=== PATIENT | male | born 1975 | race Caucasian/White ===

== ENCOUNTER 2025-01-29 18:35 | Emergency (ER) | payer OTHER ==
[~2025-01-29] VITALS: Ht 188 cm; Wt 79.7 kg
[2025-01-29] MEDS: LIDOCAINE 2% MDV 20ML VIAL SC ONE (21:05)
[2025-01-29] MEDS: ONDANSETRON 4MG ORAL DISINTEGRATING TAB PO ONE (21:07)
[2025-01-29] MEDS: NORCO, ANEXSIA 5/325MG TABLET (HYDROcodone/ACETAMINOPHEN) PO ONE (21:08)
[2025-01-29] MEDS: BACITRACIN OINTMENT 30GM TUBE TOP ONE (21:08)
[2025-01-29] MEDS: CEPHALEXIN 500 MG CAP PO ONE (21:50)
[2025-01-29] MEDS ORDERED: CEPH500C PO (22:20)
[2025-01-29 22:23] VITALS: BP 128/62; TEMP 99.1; O2SAT 98
== END 2025-01-29 22:30 | disposition home or self-care (01) ==
LOC: M ED 18:35
DX: S62.623B Displaced fracture of middle phalanx of left middle finger, initial encounter for open fracture (principal); W23.2XXA Caught, crushed, jammed or pinched between a moving and stationary object, initial encounter; Y92.009 Unspecified place in unspecified non-institutional (private) residence as the place of occurrence of the external cause; Y93.89 Activity, other specified; Y99.9 Unspecified external cause status; Z79.2 Long term (current) use of antibiotics